=== PATIENT | female | born 1995 | race African-American/Black ===

== ENCOUNTER 2020-03-13 10:34 | Emergency (ER) | payer MEDICAID ==
[~2020-03-13] VITALS: Ht 152.4 cm; Wt 56.7 kg
[2020-03-13 10:55] VITALS: BP 118/86
[2020-03-13 11:09] LABS: APPEARANCE,URINE CLEAR; BILIRUBIN, URINE NEGATIVE (NEGATIVE); GLUCOSE, URINE (UA) NEGATIVE (NEGATIVE); KETONES,URINE NEGATIVE (NEGATIVE); LEUKOCYTE ESTERASE ,URINE 1+ (NEGATIVE); NITRITE,URINE NEGATIVE (NEGATIVE); PH,URINE 6.5 (4.5-8.0); PROTEIN,URINE 1+ (NEGATIVE); UROBILINOGEN,URINE 1 MG/DL (0.0-1.0)
[2020-03-13 11:12] LABS: COLOR,URINE YELLOW
[2020-03-13 11:52] LABS: BASOPHILS % (AUTO) 1.9 % (0.0-2.0); HEMOGLOBIN 12.1 G/DL (12.0-16.0); LYMPHOCYTES % (AUTO) 34.9 % (20.0-45.0); MEAN CORPUSCULAR VOLUME 99 FL (80-99); MONOCYTES % (AUTO) 5.3 % (1.0-10.0); NEUTROPHILS % (AUTO) 53.9 % (45.0-75.0); PLATELET COUNT 227 K/UL (150-450); RED BLOOD COUNT 3.73 M/UL (4.20-5.40); RED CELL DISTRIBUTION WIDTH 12.4 % (11.6-14.8); WHITE BLOOD COUNT 5.7 K/UL (4.8-10.8)
[2020-03-13 12:14] LABS: ANION GAP 10 mmol/L (5-15); BLOOD UREA NITROGEN 10 mg/dL (7-18); CALCIUM 8.6 MG/DL (8.5-10.1); CARBON DIOXIDE 23 MMOL/L (21-32); CHLORIDE 106 MMOL/L (98-107); CREATININE 0.9 MG/DL (0.55-1.30); POTASSIUM 4.1 MMOL/L (3.5-5.1); SODIUM 139 MMOL/L (136-145)
[2020-03-13 12:18] LABS: ALANINE AMINOTRANSFERASE 13 U/L (12-78); ALBUMIN 3.7 G/DL (3.4-5.0); ALBUMIN/GLOBULIN RATIO 1.1 (1.0-2.7); ALKALINE PHOSPHATASE 68 U/L (46-116); ASPARTATE AMINO TRANSFERASE 15 U/L (15-37); BILIRUBIN,TOTAL 0.4 MG/DL (0.2-1.0)
[2020-03-13 13:10] VITALS: BP 118/86
--- NOTE | 2020-03-13 15:10 | Emergency Room Report ---
History of Present Illness General Chief Complaint: Abdominal Pain Source: Patient Present Illness HPI Disclaimer: Please note that this report is being documented using [employer] technology. This can lead to erroneous entry secondary to incorrect interpretation by the dictating instrument. HPI: 25-year-old female no reported past medical history presented for right lower quadrant abdominal pain. She states she felt the pain starting this morning while urinating. She denies any dysuria. No nausea no vomiting. Pain is gradually improved but still present. She denies any surgical history. She states her last menstrual cycle was approximately 1 month ago. She is due for her menstrual cycle around this time. COVID-19 Screening Contact w/high risk pt: No Experienced COVID-19 symptoms?: No COVID-19 Testing performed RECREATION ASSISTANT: No Patient History Last Menstrual Period: 02/14/2020 Reviewed Nursing Documentation: PMH: Agreed; PSxH: Agreed Nursing Documentation-PMH Past Medical History: No Stated History Review of Systems All Other Systems: negative except mentioned in HPI Physical Exam Vital Signs Date Time Temp Pulse Resp B/P (MAP) Pulse Ox O2 Delivery O2 Flow Rate FiO2 03/13/20 10:36 97.3 68 16 118/86 (97) 99 Room Air Sp02 EP Interpretation: reviewed, normal General Appearance: well appearing, no apparent distress Head: normocephalic, atraumatic Eyes: bilateral eye PERRL, bilateral eye EOMI ENT: hearing grossly normal, moist mucus membranes Neck: full range of motion, supple Respiratory: lungs clear, normal breath sounds, no rhonchi, no respiratory distress, no retraction, no wheezing Cardiovascular #1: normal peripheral pulses, regular rate, rhythm, no murmur Gastrointestinal: soft, non-distended, no guarding, other - Mild right lower quadrant tenderness no rebound or guarding Neurologic: alert, oriented x3, no focal defects Skin: normal color, warm/dry Medical Decision Making Diagnostic Impression: Primary Impression: Ovarian cyst Additional Impression: Lower abdominal pain ER Course MDM: Differential included but not limited to ovarian cyst, constipation, UTI, less likely appendicitis. Clinical course-IV inserted laboratory studies were sent ultrasound ordered. Ultrasound did demonstrate evidence of right ovarian cyst. Patient had minimal right lower quadrant tenderness without any peritoneal signs. She is due for her menstrual cycle at this time. I do believe her pain is secondary to an ovarian cyst and less likely appendicitis. She denied any vaginal discharge. Low suspicion for PID at this time. Will discharge home pain control follow-up PMD and return precautions. was negative. Labs - Laboratory Tests Test 03/13/20 10:50 03/13/20 11:10 Urine Color Yellow Urine Appearance Clear Urine pH 6.5 (4.5-8.0) Urine Specific [place] 1.015 (1.005-1.035) Urine Protein 1+ (NEGATIVE) H Urine Glucose (UA) Negative (NEGATIVE) Urine Ketones Negative (NEGATIVE) Urine Blood Negative (NEGATIVE) Urine Nitrite Negative (NEGATIVE) Urine Bilirubin Negative (NEGATIVE) Urine Urobilinogen 1 MG/DL (0.0-1.0) H Urine Leukocyte Esterase 1+ (NEGATIVE) H Urine RBC 0-2 /HPF (0 - 2) Urine WBC 2-4 /HPF (0 - 2) Urine Squamous Epithelial Cells Few /LPF (NONE/OCC) Urine Bacteria Few /HPF (NONE) Urine Mucus Moderate /LPF (NONE/OCC) H Urine HCG, Qualitative Negative (NEGATIVE) White Blood Count 5.7 K/UL (4.8-10.8) Red Blood Count 3.73 M/UL (4.20-5.40) L Hemoglobin 12.1 G/DL (12.0-16.0) Hematocrit 37.0 % (37.0-47.0) Mean Corpuscular Volume 99 FL (80-99) Mean Corpuscular Hemoglobin 32.6 PG (27.0-31.0) H Mean Corpuscular Hemoglobin Concent 32.8 G/DL (32.0-36.0) Red Cell Distribution Width 12.4 % (11.6-14.8) Platelet Count 227 K/UL (150-450) Mean Platelet Volume 9.1 FL (6.5-10.1) Neutrophils (%) (Auto) 53.9 % (45.0-75.0) Lymphocytes (%) (Auto) 34.9 % (20.0-45.0) Monocytes (%) (Auto) 5.3 % (1.0-10.0) Eosinophils (%) (Auto) 4.0 % (0.0-3.0) H Basophils (%) (Auto) 1.9 % (0.0-2.0) Sodium Level 139 MMOL/L (136-145) Potassium Level 4.1 MMOL/L (3.5-5.1) Chloride Level 106 MMOL/L (98-107) Carbon Dioxide Level 23 MMOL/L (21-32) Anion Gap 10 mmol/L (5-15) Blood Urea Nitrogen 10 mg/dL (7-18) Creatinine 0.9 MG/DL (0.55-1.30) Estimated Glomerular Filtration Rate > 60 mL/min (>60) Glucose Level 90 MG/DL (74-106) Calcium Level 8.6 MG/DL (8.5-10.1) Total Bilirubin 0.4 MG/DL (0.2-1.0) Aspartate Amino Transferase (AST) 15 U/L (15-37) Alanine Aminotransferase (ALT) 13 U/L (12-78) Alkaline Phosphatase 68 U/L (46-116) Total Protein 7.2 G/DL (6.4-8.2) Albumin 3.7 G/DL (3.4-5.0) Globulin 3.5 g/dL Albumin/Globulin Ratio 1.1 (1.0-2.7) Lipase 123 U/L (73-393) On reevaluation: Patient in no acute distress pain controlled Plan-discharge with follow-up PMD and return precautions Last Vital Signs Date Time Temp Pulse Resp B/P (MAP) Pulse Ox O2 Delivery O2 Flow Rate FiO2 03/13/20 13:10 97.3 68 16 118/86 99 Room Air Disposition: HOME, SELF-CARE Condition: Improved Referrals: [facility] Patient Instructions: Ovarian Cyst, [id number] Additional Instructions: Patient is instructed to follow-up with her primary care doctor, primary care clinic or [facility] in 1 to 2 days. Patient instructed to return for any worsening symptoms or concerns. Henry Macedo M.D. Mar 13, 2020 15:10
--- NOTE | 2020-03-13 16:02 | Diagnostic Imaging Report ---
Indication: Right-sided pelvic pain, negative Technique: Test and TRANSVAGINAL IMAGES OF THE PELVIS. DOPPLER INTERROGATION OF THE OVARIES Comparison: none Findings: Uterus measures 7.7 cm length by 2.3 cm AP. The endometrium measures 6 mm thick. Small calcification is seen in the myometrium Left ovary measures 2.6 cm length. Right ovary measures 3.3 cm length. Both ovaries demonstrate normal Doppler signal. No free cul-de-sac fluid Cm length. Right ovary demonstrates a hemorrhagic follicle or corpus luteum. Impression: Essentially unremarkable exam. Incidental findings as noted
== END 2020-03-13 13:10 | disposition home or self-care (01) ==
LOC: EMR 11:00
DX: N83.201 Unspecified ovarian cyst, right side (principal)
CPT/HCPCS: 36415; 76830; 76856; 80053; 81001; 81025; 83690; 85025; Z7502; 99284

== ENCOUNTER 2020-06-18 16:33 | Emergency (ER) | payer OTHER ==
[2020-06-18] MEDS ORDERED: BUPROPION XL300 MG ORAL (21:06)
[2020-06-18] MEDS ORDERED: TEMAZEPAM30 MG ORAL (21:06)
[2020-06-18] MEDS ORDERED: LATUDA20 MG PO (21:06)
--- NOTE | 2020-06-18 22:18 | Emergency Room Report ---
History of Present Illness General Chief Complaint: To Be Triaged Source: Patient Present Illness HPI Patient left prior to being seen. I had no interaction with this patient. Allergies: Coded Allergies: No Known Allergies (Unverified , 06/18/20) COVID-19 Screening Contact w/high risk pt: No Experienced COVID-19 symptoms?: No COVID-19 Testing performed [employer]INT SHOP MANAGER: No Nursing Documentation-[facility] Past Medical History: No Stated History Medical Decision Making Diagnostic Impression: Primary Impression: LWBS ER Course Patient left without being seen. I had no interaction with this patient. Disposition: LEFT W/OUT BEING SEEN Condition: Stable Referrals: NON PHYSICIAN (PCP) Brent Cifuentes MD Jun 18, 2020 22:18
== END 2020-06-18 21:30 | disposition left against medical advice (07) ==
LOC: EMR 21:19
DX: Z53.21 Procedure and treatment not carried out due to patient leaving prior to being seen by health care provider (principal)